=== PATIENT | male | born 1990 | race Caucasian/White ===

== ENCOUNTER 2017-11-21 19:04 | Emergency (ER) | payer SELFPAY ==
--- NOTE | 2017-11-21 19:21 | PDOC ---
Rapid Medical Evaluation Time Seen by Provider: 11/21/17 19:19 Medical Evaluation: I have performed a brief in-person evaluation of this patient. The patient presents with a chief complaint of: tooth infection. has not seen a dentist Pertinent physical exam findings: swollen, TTP gingiva in left lower back of mouth I have ordered the following: nothing The patient will proceed to the ED for further evaluation. Discharge Disposition - Diagnosis Tooth infection - Referrals - Patient Instructions - Post Discharge Activity
[2017-11-21 19:34] VITALS: BP 130/67; PULSE 100; TEMP 98.3; BMI 25.8
[2017-11-21] MEDS ORDERED: KETOROLAC TROMETHAMINE 60 MG/2 ML VIAL IM ONE (19:43)
[2017-11-21] MEDS ORDERED: RANITIDINE HCL 150 MG TABLET (FP) PO ONE (19:43)
[2017-11-21] MEDS ORDERED: KETOROLAC TROMETHAMINE 60 MG/2 ML VIAL ONE (19:46)
[2017-11-21] MEDS ORDERED: RANITIDINE HCL 150 MG TABLET (FP) ONE (19:46)
--- NOTE | 2017-11-21 19:46 | PDOC ---
History of Present Illness - General Chief Complaint: Toothache Stated Complaint: TOOTHACHE Time Seen by Provider: 11/21/17 19:19 - History of Present Illness Initial Comments: 7-year-old male without any medical comorbidities presents for evaluation of toothache 2 weeks. He describes his pain is achy without any real exacerbating or relieving factors. He has no other associated symptoms no fever chills night sweats nausea vomiting or headache. 11/21/17 19:44 Past History - Past Medical History Allergies/Adverse Reactions: Allergies Allergy/AdvReac Type Severity Reaction Status Date / Time No Known Allergies Allergy Verified 11/21/17 19:23 Home Medications: Ambulatory Orders Amoxicillin - [Amoxicillin 875mg Tablet -] 875 mg PO BID #20 tablet 11/21/17 COPD: No - Suicide/Smoking/Psychosocial Hx Smoking History: Current every day smoker Have you smoked in the past 12 months: Yes Number of Cigarettes Smoked Daily: 10 Information on smoking cessation initiated: No Hx Alcohol Use: No Drug/Substance Use Hx: No Substance Use Type: None Review of Systems - Review of Systems Constitutional: Yes: See HPI All Other Systems: Reviewed and Negative *Physical Exam - Vital Signs Last Vital Signs Temp Pulse Resp BP Pulse Ox 98.3 F 100 H 17 130/67 98 11/21/17 19:20 11/21/17 19:20 11/21/17 19:20 11/21/17 19:20 11/21/17 19:20 - Physical Exam Comments: There is a gingival abscess on the left lower gingiva which is tender and firm. TMJ motion is intact. Mild left-sided lower jaw swelling. 11/21/17 19:44 Medical Decision Making - Medical Decision Making I've made arrangements for the patient to go to dental Urgentcare. He'll follow- up with dental Urgentcare soon as he leaves the emergency room. He has transportation. 11/21/17 19:45 *DC/Admit/Observation/Transfer Diagnosis at time of Disposition: Tooth infection - Discharge Dispostion Disposition: HOME Condition at time of disposition: Stable Decision to Admit order: No - Prescriptions Prescriptions: Amoxicillin - [Amoxicillin 875mg Tablet -] 875 mg PO BID #20 tablet - Referrals - Patient Instructions Printed Discharge Instructions: DI for Tooth Abscess Additional Instructions: Go directly to dental Urgentcare located at [address] [place] [address] and [place]. I've called in an antibiotic for you. Also given you a shot of an anti-inflammatory and medicine to protect her stomach while urine the emergency room today. Return to the emergency room if symptoms worsen or go unresolved. - Post Discharge Activity
== END 2017-11-21 19:51 | disposition home or self-care (01) ==
LOC: JERFT 19:04
DX: K04.7 Periapical abscess without sinus (principal); F17.210 Nicotine dependence, cigarettes, uncomplicated
CPT/HCPCS: 99281-25

== ENCOUNTER 2018-04-01 08:07 | Emergency (ER) | payer OTHER ==
[2018-04-01 08:53] VITALS: BP 135/86; PULSE 87; TEMP 98.4; BMI 26.6
[2018-04-01] MEDS ORDERED: KETOROLAC TROMETHAMINE 60 MG/2 ML VIAL IM ONE (09:06)
[2018-04-01] MEDS ORDERED: KETOROLAC TROMETHAMINE 60 MG/2 ML VIAL ONE (09:08)
--- NOTE | 2018-04-01 09:11 | PDOC ---
History of Present Illness - General Chief Complaint: Sore Throat Stated Complaint: Sore Throat Time Seen by Provider: 04/01/18 08:57 History Source: Patient Exam Limitations: No Limitations - History of Present Illness Initial Comments: 04/01/18 09:09 27 yr male with c/o sore throat on clindamycin and prednisone day 2, pt had [employer] drained 2 days ago on the left side now has pain to the right side. pt is able to swallow secretions and the pills, however unable to eat. pt took meds this AM. no fever no chills no medical history. Severity: moderate Past History - Past Medical History Allergies/Adverse Reactions: Allergies Allergy/AdvReac Type Severity Reaction Status Date / Time shellfish derived Allergy Verified 04/01/18 08:53 Home Medications: Ambulatory Orders Amoxicillin - [Amoxicillin 875mg Tablet -] 875 mg PO BID #20 tablet 11/21/17 COPD: No - Suicide/Smoking/Psychosocial Hx Smoking History: Never smoked Have you smoked in the past 12 months: No Number of Cigarettes Smoked Daily: 10 Information on smoking cessation initiated: No Hx Alcohol Use: No Drug/Substance Use Hx: No Substance Use Type: None Review of Systems - Review of Systems Able to Perform ROS?: Yes Is the patient limited [place]ian proficient: No Constitutional: No: Symptoms Reported HEENTM: Yes: Symptoms Reported *Physical Exam - Vital Signs Last Vital Signs Temp Pulse Resp BP Pulse Ox 98.4 F 87 16 135/86 100 04/01/18 08:51 04/01/18 08:51 04/01/18 08:51 04/01/18 08:51 04/01/18 08:51 - Physical Exam General Appearance: Yes: Nourished, Appropriately Dressed HEENT: positive: EOMI, BAUTISTA, TMs Normal, Pharyngeal Erythema, Tonsillar Erythema , Other (uvula midline , neg trismus). negative: Tonsillar Exudate Neck: positive: Supple. negative: Tender, Lymphadenopathy (R), Lymphadenopathy (L) Respiratory/Chest: positive: Lungs Clear, Normal Breath Sounds. negative: Chest Tender Cardiovascular: positive: Regular Rhythm, Regular Rate Musculoskeletal: positive: Normal Inspection Extremity: positive: Normal Capillary Refill, Normal Inspection, Normal Range of Motion Integumentary: positive: Normal Color, Dry, Warm Medical Decision Making - Medical Decision Making 10/10/18 09:45 cc: continued sore throat no fever on clinda and prednisone 40mg daily day 3 pt with increased painful swallowing to the right side spoke to ENT they can see pt at 1130am today pt agrees with plan *DC/Admit/Observation/Transfer Diagnosis at time of Disposition: Abscess - Discharge Dispostion Disposition: HOME Condition at time of disposition: Fair - Referrals Referrals: Lukas Ng MD [Staff Physician] - - Patient Instructions Additional Instructions: see at 1130 am at the address listed below please arrive early 15 minutes to do the paperwork you will be responsible for payment do not eat or drink anything in between visits gargle with warm salt water 4-5 times a day - Post Discharge Activity
== END 2018-04-01 09:47 | disposition home or self-care (01) ==
LOC: JERFT 08:07
PROC: 3E0233Z Introduction of Anti-inflammatory into Muscle, Percutaneous Approach (ICD-10-PCS; principal; 2018-04-01)
DX: L02.91 Cutaneous abscess, unspecified (principal)
CPT/HCPCS: 87070; 87077; 87430; 96372; 99281-25